=== PATIENT | male | born 1965 | race Hispanic/Latino ===

== ENCOUNTER 2024-03-02 01:46 | Emergency (ER) | payer SELFPAY ==
[2024-03-02 02:19] LABS: Bacteria/HPF 2+ HPF (None Seen); Bilirubin Negative (Negative); Blood, Urine 3+ (Negative); CAUTI Indications for Culture Dysuria,urgency,freq; Clarity Extra Turbid (Clear); Glucose, Urine (Dipstick) Greater than 1000 mg/dL (Negative); Ketone, Urine Negative (Negative); Leukocyte 500 Leu/uL (Negative); Nitrite Negative (Negative); Protein, Urine (Dipstick) 20 mg/dL (Neg-Trace); RBC/HPF Greater than 50 HPF (0-3); Specific Gravity, Urine 1.006 (1.002-1.036); Squamous Epithelial 0-3 HPF (0-3); Urobilinogen Normal mg/dL (Less than 2); WBC/HPF Greater than 50 HPF (0-3); Yeast-Budding 2+ HPF (None Seen)
[2024-03-02 02:20] LABS: Urine Culture Reflex Yes Yes
== END 2024-03-02 02:38 | disposition home or self-care (01) ==
LOC: ERS 01:46 → EDBD 01:46 → ERS 02:38
DX: N39.0 Urinary tract infection, site not specified (principal); E11.9 Type 2 diabetes mellitus without complications
CPT/HCPCS: 36416; 51702; 81001; 87077; 87086; 99284

== ENCOUNTER 2024-03-09 08:39 | Emergency (ER) | payer SELFPAY ==
[2024-03-09 09:57] LABS: Bacteria/HPF 2+ HPF (None Seen); Bilirubin Negative (Negative); Blood, Urine 3+ (Negative); CAUTI Indications for Culture < 2yrs of age; Clarity Extra Turbid (Clear); Glucose, Urine (Dipstick) >=1000 mg/dL (Negative); Ketone, Urine Negative (Negative); Leukocyte 500 Leu/uL (Negative); Nitrite Negative (Negative); Protein, Urine (Dipstick) 100 mg/dL (Neg-Trace); RBC/HPF 21-50 HPF (0-3); Specific Gravity, Urine 1.011 (1.002-1.036); Squamous Epithelial None Seen HPF (0-3); Urobilinogen Normal mg/dL (Less than 2); WBC/HPF Greater than 50 HPF (0-3)
[2024-03-09 10:05] LABS: Urine Culture Reflex Yes Yes; Yeast-Budding Rare HPF (None Seen); Yeast-Hyphae 1+ HPF (None Seen)
== END 2024-03-09 10:55 | disposition home or self-care (01) ==
LOC: ERS 08:39
DX: N39.0 Urinary tract infection, site not specified (principal); F17.200 Nicotine dependence, unspecified, uncomplicated; E11.9 Type 2 diabetes mellitus without complications
CPT/HCPCS: 51702; 81001; 87077; 87086; 99283

== ENCOUNTER 2024-03-11 04:15 | Emergency (ER) | payer SELFPAY | END 2024-03-11 06:33 | disposition home or self-care (01) | LOC: ERS 04:15 | DX: T83.011A Breakdown (mechanical) of indwelling urethral catheter, initial encounter (principal); E11.9 Type 2 diabetes mellitus without complications; F17.200 Nicotine dependence, unspecified, uncomplicated; Z55.0 Illiteracy and low-level literacy | CPT/HCPCS: 99283 ==